=== PATIENT | male | born 1950 | race Caucasian/White ===

== ENCOUNTER 2019-11-24 10:01 | Day surgery (SDC) | payer MEDICARE ==
[~2019-11-24] VITALS: Ht 175.3 cm; Wt 91.6 kg
[~2019-11-24 10:01] MED LIST: ALLO10TA PO; ATOR40TA75 PO; BISO5TAB14 PO; BUDE180INH INH; DILT1TAB12 PO; FLON1SPR; HYDR25TAB PO; IRBE150T7 PO; METF-791 PO; MONT10TA4 PO; NS 1,000 ML IV ONE; propofoL 200 MG/20 ML VIAL As Ordered ONE
[2019-11-24] MEDS ORDERED: propofoL 200 MG/20 ML VIAL As Ordered ONE (11:52)
[2019-11-24] MEDS ORDERED: LIDOCAINE 2% INJ 100 MG/5 ML SDV (FOR ANES.) As Ordered ONE (11:52)
--- NOTE | 2019-11-24 12:05 | ROOR ---
Patient Name: Bruno Rendon Procedure Date: 11/24/2019 11:38 AM Date of : 1950 Age: 69 Room: [facility] Gender: Male Note Status: Finalized Procedure: Colonoscopy Indications: Positive Cologuard test Providers: Nathaniel Dyer Jr, MD Referring MD: Iveth Knott DO Requesting Provider: Medicines: Propofol per Anesthesia Complications: No immediate complications. Procedure: Pre-Anesthesia Assessment: - Prior to the procedure, a History and Physical was performed, and patient medications and allergies were reviewed. The patient is competent. The risks and benefits of the procedure and the sedation options and risks were discussed with the patient. All questions were answered and informed consent was obtained. Patient identification and proposed procedure were verified by the physician and the nurse in the pre-procedure area and in the procedure room. Mental Status Examination: alert and oriented. Airway Examination: normal oropharyngeal airway and neck mobility. Respiratory Examination: clear to auscultation. CV Examination: normal. ASA Grade Assessment: II - A patient with mild systemic disease. After reviewing the risks and benefits, the patient was deemed in satisfactory condition to undergo the procedure. The anesthesia plan was to use moderate sedation / analgesia (conscious sedation). Immediately prior to administration of medications, the patient was re-assessed for adequacy to receive sedatives. The heart rate, respiratory rate, oxygen saturations, blood pressure, adequacy of pulmonary ventilation, and response to care were monitored throughout the procedure. The physical status of the patient was re-assessed after the procedure. The Colonoscope was introduced through the anus and advanced to the cecum, identified by appendiceal orifice and ileocecal valve. The colonoscopy was performed without difficulty. The patient tolerated the procedure well. The quality of the bowel preparation was adequate. Findings: Non-bleeding internal hemorrhoids were found during endoscopy. The hemorrhoids were moderate. A medium polyp was found in the rectum. The polyp was pedunculated. The polyp was removed with a hot snare. Resection and retrieval were complete. Six polyps were found in the sigmoid colon, descending colon, transverse colon and ascending colon. The polyps were small in size. These polyps were removed with a hot snare. Resection was complete, but the polyp tissue was only partially retrieved. The recto-sigmoid colon, cecum, appendiceal orifice and ileocecal valve appeared normal. Impression: - Non-bleeding internal hemorrhoids. - One medium polyp in the rectum, removed with a hot snare. Resected and retrieved. - Six small polyps in the sigmoid colon, in the descending colon, in the transverse colon and in the ascending colon, removed with a hot snare. Complete resection. Partial retrieval. - The recto-sigmoid colon, cecum, appendiceal orifice and ileocecal valve are normal. Recommendation: - Discharge patient to home (ambulatory). - Repeat colonoscopy in 3 years for surveillance based on pathology results. Nathaniel Dyer MD Nathaniel Dyer Jr, MD 11/24/2019 12:05:18 PM Electronically signed by Nathaniel Dyer Jr, MD Number of Addenda: 0 Note Initiated On: 11/24/2019 11:38 AM Estimated Blood Loss: Estimated blood loss: none.
[2019-11-24 12:20] VITALS: BP 136/84
== END 2019-11-24 12:37 | disposition home or self-care (01) ==
LOC: M OPP 10:01
PROVIDERS: ATTEND Surgery
DX: R19.5 Other fecal abnormalities (principal); D12.5 Benign neoplasm of sigmoid colon; D12.4 Benign neoplasm of descending colon; D12.3 Benign neoplasm of transverse colon; D12.2 Benign neoplasm of ascending colon; D12.7 Benign neoplasm of rectosigmoid junction; K64.8 Other hemorrhoids; E11.9 Type 2 diabetes mellitus without complications; I10 Essential (primary) hypertension; E78.00 Pure hypercholesterolemia, unspecified; K59.00 Constipation, unspecified; J45.909 Unspecified asthma, uncomplicated; R06.83 Snoring; F17.220 Nicotine dependence, chewing tobacco, uncomplicated; Z79.84 Long term (current) use of oral hypoglycemic drugs; Z79.899 Other long term (current) drug therapy; Z88.0 Allergy status to penicillin; Z88.8 Allergy status to other drugs, medicaments and biological substances

== ENCOUNTER 2023-04-09 07:11 | Day surgery (SDC) | payer MEDICARE ==
[~2023-04-09] VITALS: Ht 175.3 cm; Wt 89.5 kg
[~2023-04-09 07:11] MED LIST changes: +HYDR-3490 PO; -HYDR25TAB PO; +LOSA100T46 PO; -METF-791 PO; +METF-838 PO; -MONT10TA4 PO; +MONT10TA97 PO; +PULM90IN INH; -propofoL 200 MG/20 ML VIAL As Ordered ONE
[2023-04-09] MEDS ORDERED: LIDOCAINE 2% 100MG/5ML SDV (FOR ANES.) As Ordered ONE (08:45)
[2023-04-09] MEDS ORDERED: propofoL 500 MG/50 ML VIAL As Ordered ONE (08:45)
[2023-04-09] MEDS ORDERED: fentaNYL 100 MCG/2 ML INJECTION As Ordered ONE (08:50)
[2023-04-09 09:06] VITALS: TEMP 97.5
[2023-04-09 09:26] VITALS: BP 145/65; O2SAT 96
== END 2023-04-09 09:38 | disposition home or self-care (01) ==
LOC: M OPP 07:11
PROVIDERS: ATTEND Surgery
DX: Z12.11 Encounter for screening for malignant neoplasm of colon (principal); Z86.010 Personal history of colon polyps; D12.6 Benign neoplasm of colon, unspecified; K57.30 Diverticulosis of large intestine without perforation or abscess without bleeding; K64.8 Other hemorrhoids; F17.220 Nicotine dependence, chewing tobacco, uncomplicated; Z79.02 Long term (current) use of antithrombotics/antiplatelets; Z79.84 Long term (current) use of oral hypoglycemic drugs; Z88.0 Allergy status to penicillin; Z88.6 Allergy status to analgesic agent
CPT/HCPCS: 45385; 88305; J3010